=== PATIENT | male | born 1985 | race Caucasian/White ===

== ENCOUNTER 2017-09-15 18:06 | Emergency (ER) | payer SELFPAY ==
[~2017-09-15] VITALS: Ht 185.4 cm; Wt 68.2 kg
[2017-09-15 18:08] VITALS: BP 126/83
== END 2017-09-15 18:42 | disposition home or self-care (01) ==
LOC: ED 18:06
DX: G40.909 Epilepsy, unspecified, not intractable, without status epilepticus (principal); S01.81XA Laceration without foreign body of other part of head, initial encounter; Y08.89XA Assault by other specified means, initial encounter; Y92.009 Unspecified place in unspecified non-institutional (private) residence as the place of occurrence of the external cause

== ENCOUNTER 2019-09-16 22:57 | Emergency (ER) | payer SELFPAY ==
[2019-09-16] MEDS ORDERED: VIMPAT100 MG (23:18)
[2019-09-17] MEDS ORDERED: KETOROLAC10 MG PO (00:20)
[2019-09-17] MEDS ORDERED: CEPHALEXIN500 M1 PO (00:20)
[2019-09-17 00:39] VITALS: BP 124/82
== END 2019-09-17 00:46 | disposition home or self-care (01) ==
LOC: ED 22:57
DX: K02.9 Dental caries, unspecified (principal); K05.10 Chronic gingivitis, plaque induced; G40.909 Epilepsy, unspecified, not intractable, without status epilepticus
CPT/HCPCS: J1885

== ENCOUNTER 2020-09-04 03:23 | Emergency (ER) | payer SELFPAY ==
[~2020-09-04 03:23] MED LIST: CEPHALEXIN500 M1 PO; KETOROLAC10 MG PO; VIMPAT100 MG
[2020-09-04 04:10] LABS: BASO # 0.07 (0.02-0.10); EOS # 0.36 (0.04-0.40); EOS % 3.6 % (0.0-4.0); HEMATOCRIT 41.9 % (42.0-52.0); HEMOGLOBIN 14.9 g/dL (13.5-18.0); LYMPH# 3.45 (1.50-4.00); MEAN CELL VOLUME 89 fl (78-100); MEAN CORPUSCULAR HEMOGLOBIN 32 pg (27-31); MEAN CORPUSCULAR HGB CONC 36 g/dL (33-37); MEAN PLATELET VOLUME 9.7 fl (7.4-10.4); MONO # 0.81 (0.20-0.80); NEU # 5.26 (1.40-6.50); PLATELET COUNT 374 K/mm3 (130-400); RED BLOOD COUNT 4.73 M/mm3 (4.20-5.60); RED CELL DISTRIBUTION WIDTH 12.5 % (11.5-14.5)
[2020-09-04 04:26] LABS: ALBUMIN 4.3 g/dL (3.5-5.0); POTASSIUM 3.7 mmol/L (3.5-5.1)
[2020-09-04 04:28] LABS: CALCIUM 9.2 mg/dL (8.3-10.5)
[2020-09-04 04:29] LABS: TOTAL PROTEIN 7.4 g/dL (6.4-8.3)
[2020-09-04 04:31] LABS: TOTAL BILIRUBIN 0.3 mg/dL (0.2-1.2)
[2020-09-04 04:33] LABS: PROTHROMBIN TIME 9.8 SECONDS (9.0-12.0)
[2020-09-04 04:35] LABS: URINE APPEARANCE CLEAR; URINE BILIRUBIN NEGATIVE (NEGATIVE); URINE BLOOD NEGATIVE (NEGATIVE); URINE COLOR YELLOW; URINE GLUCOSE NEGATIVE (NEGATIVE); URINE KETONE NEGATIVE (NEGATIVE); URINE LEUKOCYTE ESTERASE NEGATIVE (NEGATIVE); URINE NITRATE NEGATIVE (NEGATIVE); URINE PROTEIN(semi-quant) NEGATIVE (NEGATIVE); URINE UROBILINOGEN NORMAL (NORMAL)
[2020-09-04 04:36] LABS: URINE MUCUS PRESENT (NOT PRESENT)
[2020-09-04 07:04] VITALS: BP 114/81
== END 2020-09-04 07:20 | disposition home or self-care (01) ==
LOC: ED 03:23
PROVIDERS: Nurse Practitioner
DX: S41.112A Laceration without foreign body of left upper arm, initial encounter (principal); F10.129 Alcohol abuse with intoxication, unspecified; R56.9 Unspecified convulsions; F17.210 Nicotine dependence, cigarettes, uncomplicated; Z88.8 Allergy status to other drugs, medicaments and biological substances; Z79.899 Other long term (current) drug therapy
CPT/HCPCS: J7030